=== PATIENT | male | born 1965 | race Caucasian/White ===

== ENCOUNTER 2016-12-08 18:56 | Emergency (ER) | payer OTHER | END 2016-12-08 19:13 | disposition home or self-care (01) | LOC: ER 18:56 | DX: S50.12XA Contusion of left forearm, initial encounter (principal); S80.12XA Contusion of left lower leg, initial encounter; W19.XXXA Unspecified fall, initial encounter | CPT/HCPCS: 70450; 72125; 90471; 90714; 99284 ==